=== PATIENT | male | born 1930 | race Caucasian/White ===

== ENCOUNTER 2017-08-26 16:09 | Emergency (ER) | payer OTHER ==
[2017-08-26 18:11] VITALS: BP 144/86
== END 2017-08-26 18:50 | disposition home or self-care (01) ==
LOC: ED 16:09
DX: S86.911A Strain of unspecified muscle(s) and tendon(s) at lower leg level, right leg, initial encounter (principal); S00.31XA Abrasion of nose, initial encounter; I10 Essential (primary) hypertension; E11.9 Type 2 diabetes mellitus without complications; Z79.84 Long term (current) use of oral hypoglycemic drugs; Z88.8 Allergy status to other drugs, medicaments and biological substances; W18.30XA Fall on same level, unspecified, initial encounter; Y99.8 Other external cause status; Y93.89 Activity, other specified; Y92.89 Other specified places as the place of occurrence of the external cause
CPT/HCPCS: 90715